=== PATIENT | male | born 1965 | race Caucasian/White ===

== ENCOUNTER 2016-12-10 10:25 | Observation (INO) | payer BC ==
--- NOTE | ~2016-12-10 | DS ---
Discharge Summary [place] [address] [place]. [address] NAME: MELIA HONG : 63 STATUS : DIS Candy PAT#: [id number] AGE: 51 ADM/REG DATE : 12/10/16 MR#: [id number] REPORT SERV DATE: 12/15/16 DICTATED BY: REMEDIOS WELCH DATE: 12/11/16 REPORT STATUS : Draft TRANSCRIBED BY: MODL DATE: 12/11/16 ADMISSION DATE: 12/10/2016 DISCHARGE DATE: 12/11/2016 DISCHARGE DIAGNOSES: 1. Coronary artery disease, status post PCI. The patient will be on Plavix and aspirin for anti-dual therapy after the drug-eluted stent. 2. Tobacco abuse. 3. Hypertension. CONSULTATION: Dr. Zamora. PROCEDURES: Echocardiogram, stress test, cardiac catheterization, and percutaneous intervention. HISTORY OF PRESENT ILLNESS: This is a 51-year-old male patient, who does not have any previous cardiopulmonary history, came to the [facility] complaining of chest pain. Please see dictated H and P. HOSPITAL COURSE: He was evaluated for chest pain, was found to have abnormal echocardiogram and nuclear stress test, and then transferred to [facility] to get cardiac catheterization. On 12/10/2016, the patient had a cardiac cath, which showed 80% of mid LAD lesion. Had a drug-eluted stent at mid LAD and angioplasty. After the procedure, he stayed in a stable condition, maximized recovery. The patient will be discharged to home with appropriate medical treatment for coronary disease with mild systolic dysfunction on echocardiogram. He remains in stable condition. The patient will be discharged to home. employment case manager will involve to help in the medical compliance and finding a primary care physician. DISCHARGE MEDICATIONS: 1. Aspirin 81 mg once a day. 2. Plavix 75 mg once a day. 3. Coreg 6.25 mg twice a day. 4. Lisinopril 5 mg once a day. Tobacco cessation was strongly advised and educated. The patient voiced understanding. DISPOSITION: The patient is discharged to home in stable condition. DICTATED BY: Remedios Welch M.D. EKL/KAVIN Discharge Summary [address] [place]. [address] NAME: MELIA HONG DOB: [birth year] STATUS : DIS Candy PAT#: [id number] AGE: 51 ADM/REG DATE : 12/10/16 MR#: [id number] REPORT SERV DATE: 12/15/16 DICTATED BY: REMEDIOS WELCH DATE: 12/11/16 REPORT STATUS : Draft TRANSCRIBED BY: KAVIN DATE: 12/11/16 Remedios Welch M.D. / [id number] CC: Remedios Welch M.D.
[~2016-12-10 10:25] MED LIST: ADVIL PO; ZANTAC 150 PO
[2016-12-11 04:53] LABS: HEMATOCRIT 41.3 % (40.0-51.0); HEMOGLOBIN 14.3 g/dL (13.6-17.8)
[2016-12-11 05:08] LABS: BUN (BLOOD UREA NITROGEN) 13 MG/DL (6-23); CALCIUM, SERUM 8.4 MG/DL (8.5-10.4); CHLORIDE, SERUM 108 MMOL/L (96-112); CREATININE 1.07 MG/DL (0.70-1.30); GFR AFRICAN AMERICAN 92 ML/MIN (>=60); GFR NON AFRICAN AMERICAN 79 ML/MIN (>=60); GLUCOSE, SERUM 111 MG/DL (60-99); POTASSIUM, SERUM 3.9 MMOL/L (3.5-5.3); SODIUM, SERUM 138 MMOL/L (135-148)
[2016-12-11 05:09] LABS: CO2 (CARBON DIOXIDE) 23 MMOL/L (24-34)
[2016-12-11] MEDS ORDERED: PLAVIX PO (08:34)
[2016-12-11] MEDS ORDERED: LIPITOR80 MG PO (08:35)
[2016-12-11] MEDS ORDERED: NITROQUICK0.4 MG SL (08:36)
[2016-12-11] MEDS ORDERED: PRIN5 PO (08:36)
[2016-12-11] MEDS ORDERED: COREG6 PO (08:36)
== END 2016-12-11 10:20 | disposition home or self-care (01) ==
LOC: SSU1 10:25
PROVIDERS: Internal Medicine Cardiovascular Disease
PROC: 4A023N7 Measurement of Cardiac Sampling and Pressure, Left Heart, Percutaneous Approach (ICD-10-PCS; principal; 2016-12-10)
PROC: B2111ZZ Fluoroscopy of Multiple Coronary Arteries using Low Osmolar Contrast (ICD-10-PCS; 2016-12-10)
PROC: 027034Z Dilation of Coronary Artery, One Artery with Drug-eluting Intraluminal Device, Percutaneous Approach (ICD-10-PCS; 2016-12-10)
DX: I25.110 Atherosclerotic heart disease of native coronary artery with unstable angina pectoris (principal); F17.210 Nicotine dependence, cigarettes, uncomplicated; Z79.899 Other long term (current) drug therapy; Z82.49 Family history of ischemic heart disease and other diseases of the circulatory system; Z82.0 Family history of epilepsy and other diseases of the nervous system; Z83.3 Family history of diabetes mellitus; Z87.442 Personal history of urinary calculi; Z98.890 Other specified postprocedural states
CPT/HCPCS: 80048; 85014; 85018; 93005; 93458; 99152; 99153; A9270-GY; C1725; C1769; C1874; C1887; C1894; C9600; G0378; J0583; J2250; J3010; Q9967

== ENCOUNTER 2016-12-22 05:57 | Emergency (ER) | payer BC ==
[2016-12-22 03:22] LABS: BASOPHILS 0.6 %; BASOPHILS ABSOLUTE 0.06 10/3/uL (0.0-0.16); EOSINOPHILS 4.4 %; EOSINOPHILS ABSOLUTE 0.45 10/3/uL (0.0-0.53); HEMATOCRIT 43.8 % (40.0-51.0); HEMOGLOBIN 15.3 g/dL (13.6-17.8); IMMATURE GRANULOCYTES 0.2 %; IMMATURE GRANULOCYTES ABSOLUTE 0.02 10/3/uL (0.0-0.11); LYMPHOCYTES 27.7 %; LYMPHOCYTES ABSOLUTE 2.84 10/3/uL (0.67-4.30); MEAN CORPUS HGB CONC 34.9 g/dL (32.0-36.0); MEAN CORPUSCULAR HEMOGLOB 30.7 pg (26.0-34.0); MEAN PLATELET VOLUME 10.2 fL (9.2-13.0); MONOCYTES 10.1 %; MONOCYTES ABSOLUTE 1.04 10/3/uL (0.21-1.20); NEUTROPHILS ABSOLUTE 5.84 10/3/uL (2.02-8.40); PLATELET COUNT 304 10/3/uL (150-400); RBC DISTRIBUTION WIDTH 12.7 % (12.0-16.0); RED CELL COUNT 4.98 10/6/uL (4.7-6.1); WHITE BLOOD CELLS 10.3 10/3/uL (4.5-10.5)
[2016-12-22 03:24] LABS: MANUAL DIFF NO %
[2016-12-22 03:30] LABS: PARTIAL THROMBO TIME 30.3 SEC (22.5-37.2)
[2016-12-22 03:37] LABS: CALCIUM, SERUM 8.5 MG/DL (8.5-10.4); CHEST PAIN PROFILE TAT 0 Hrs 21 Mins; CHLORIDE, SERUM 107 MMOL/L (96-112); CO2 (CARBON DIOXIDE) 24 MMOL/L (24-34); CREATININE 1.23 MG/DL (0.70-1.30); GFR AFRICAN AMERICAN 78 ML/MIN (>=60); GFR NON AFRICAN AMERICAN 67 ML/MIN (>=60); GLUCOSE, SERUM 116 MG/DL (60-99); POTASSIUM, SERUM 3.9 MMOL/L (3.5-5.3); SODIUM, SERUM 138 MMOL/L (135-148); TROPONIN I <0.02 NG/ML (<0.05)
[2016-12-22 03:38] LABS: BUN (BLOOD UREA NITROGEN) 19 MG/DL (6-23)
[~2016-12-22 05:57] MED LIST changes: +COREG6 PO; +LIPITOR80 MG PO; +NITROQUICK0.4 MG SL; +PLAVIX PO; +PRIN5 PO
== END 2016-12-22 06:35 | disposition home or self-care (01) ==
LOC: ER 05:57
PROVIDERS: Specialist
DX: R07.9 Chest pain, unspecified (principal); I25.2 Old myocardial infarction; Z95.5 Presence of coronary angioplasty implant and graft; Z87.891 Personal history of nicotine dependence; Z79.899 Other long term (current) drug therapy
CPT/HCPCS: 71020; 80048; 83735; 84484; 85025; 85610; 85730; 93005; 99285; A9270-GY